=== PATIENT | female | born 1960 | race Caucasian/White ===

== ENCOUNTER 2016-12-14 11:35 | Emergency (ER) | payer SELFPAY ==
[~2016-12-14] VITALS: Wt 79.0 kg
[~2016-12-14 11:35] MED LIST: BUPR75TA9 PO; CLIN-73 PO; TRAM50TA2 PO
--- NOTE | 2016-12-14 13:19 | RADRPT ---
PROCEDURE: XR Right Foot CLINICAL INDICATION: Pain, trauma TECHNIQUE: AP, oblique, and lateral radiographs were submitted. COMPARISON: None FINDINGS: Osseous structures: appear well mineralized and intact with no fracture or destructive process iden tified. There is calcaneal spurring most extensive at the insertion of the plantar aponeurosis. Joint spaces: are well maintained, with no significant spurring, erosion or joint effusion evident. Soft tissues: There is linear calcification within the soft tissues lateral to the proximal interpha langeal joint of the right second toe. IMPRESSION: 1. The osseous elements appear intact. 2. Calcaneal spurring 3. Linear calcification seen lateral to the proximal interphalangeal joint of the right second toe. Physician [place] Date Time Electronically viewed and signed by Blanca Brown Physician on 12/14/2016 13:19 /
--- NOTE | 2016-12-14 13:27 | ERD ---
ER Documentation Chief Complaint Date/Time DATE: 12/14/16 TIME: 13:25 Chief Complaint R FOOT PAIN X 2 DAYS HPI This is a 36-year-old female who presents to the emergency room for evaluation of right-sided foot pain after she hit her foot on a metal bar approximately 2 days ago. The patient denies any other trauma to the body and states that her foot hurts and has been swollen. She does state that she has wrapped her foot and Gabriele wrap and came to the ER for evaluation. She denies any numbness or tingling in the foot ROS All systems reviewed and are negative except as per history of present illness. Medications Home Meds Active Scripts Tramadol HCl (Tramadol HCl) 50 Mg Tablet, 50 MG PO Q4 Y for PAIN, #20 TAB Prov:YUN MAKI 02/18/16 Clindamycin Hcl* (Clindamycin Hcl*) 300 Mg Capsule, 300 MG PO TID for 10 Days, CAP Prov:YUN MAKI 02/18/16 Reported Medications Bupropion Hcl* (Bupropion Hcl*) 75 Mg Tablet, 150 MG PO BID, #120 TAB 02/18/16 Allergies Allergies: Coded Allergies: No Known Allergy (Unverified , 02/18/16) PMhx/Soc History of Surgery: Yes (LASER TREATMENT OF LEG ULCER) Hx Miscellaneous Medical Probl: Yes (right leg ulcer) Hx Alcohol Use: No Hx Substance Use: No Hx Tobacco Use: No Physical Exam Vitals Vital Signs Date Time Temp Pulse Resp B/P Pulse Ox O2 Delivery O2 Flow Rate FiO2 12/14/16 11:38 98.0 71 18 171/81 100 Physical Exam Const: No acute distress Head: Atraumatic Eyes: Normal Conjunctiva ENT: Normal External Ears, Nose and Mouth. Neck: Full range of motion..~ No meningismus. Resp: Clear to auscultation bilaterally Cardio: Regular rate and rhythm, no murmurs Abd: Soft, non tender, non distended. Normal bowel sounds Skin: No petechiae or rashes Back: No midline or flank tenderness Ext: Soft tissue swelling noted on the dorsal aspect of the right foot, scarring on the right foot, Refill less than 2 seconds in the right foot. Palpable dorsalis pedis and posterior tibial pulse bilaterally which are equal Neur: Awake and alert Psych: Normal Mood and Affect Procedures/MDM X-ray Foot 3V Interpreted by me: Bones: No fracture Joints: No dislocation Foreign body: None A orthopedic shoe splint was applied by the tech under my direct supervision. After splint application, the patient was appreciated to have a normal distal neurovascular examination. This 56-year-old female presents to the emergency room for evaluation of right foot pain. When I evaluated her she did have soft tissue swelling of the right foot. She was neurovascularly intact in the foot. X-ray was obtained which does not show any fractures. I have discussed the patient's results with her. The patient will be discharged at this time with an orthopedic, instructions to keep her leg elevated. Instructions to keep her leg iced. She will also receive a prescription for Motrin and follow-up with primary care this week. Departure Diagnosis: Primary Impression: Contusion of right foot Condition: Stable VIRGINIA ORTIZ DO December 14, 2016 13:27
[2016-12-14] MEDS ORDERED: IBUP800T25 PO (13:28)
== END 2016-12-14 13:44 | disposition home or self-care (01) ==
LOC: FTE 11:35
DX: S90.31XA Contusion of right foot, initial encounter (principal); W22.8XXA Striking against or struck by other objects, initial encounter; Y92.9 Unspecified place or not applicable
CPT/HCPCS: 73630

== ENCOUNTER 2017-03-04 23:35 | Emergency (ER) | payer OTHER ==
[~2017-03-04] VITALS: Ht 160 cm; Wt 103.5 kg
[~2017-03-04 23:35] MED LIST changes: +IBUP800T25 PO
[2017-03-04 23:37] VITALS: Ht 160 cm; Wt 103.5 kg
--- NOTE | 2017-03-05 01:09 | ERA ---
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 The pain is worse with movement. She denies similar symptoms previously, denies fever, chills, neck pain, chest pain, vomiting, dysuria, diarrhea, hematuria. She does not smoke nor drink Past medical history: Hypertension however she is noncompliant with her medication, chronic low back pain, chronic right foot ulcer Past surgical history: Right knee arthroscopy ROS All systems reviewed and are negative except as per history of present illness. Medications Home Meds Active Scripts Ibuprofen* (Motrin*) 600 Mg Tab, 600 MG PO Q6, #30 TAB Prov:BENTLEY MONTOYA MD 03/05/17 Ibuprofen* (Motrin*) 800 Mg Tab, 800 MG PO Q6H Y for PAIN AND OR ELEVATED TEMP, #30 TAB Prov:VIRGINIA ORTIZ DO 12/14/16 Tramadol HCl (Tramadol HCl) 50 Mg Tablet, 50 MG PO Q4 Y for PAIN, #20 TAB Prov:YUN MAKI 02/18/16 Clindamycin Hcl* (Clindamycin Hcl*) 300 Mg Capsule, 300 MG PO TID for 10 Days, CAP Prov:YUN MAKI 02/18/16 Reported Medications Bupropion Hcl* (Bupropion Hcl*) 75 Mg Tablet, 150 MG PO BID, #120 TAB 02/18/16 Allergies Allergies: Coded Allergies: No Known Allergy (Unverified , 02/18/16) PMhx/Soc History of Surgery: Yes (LASER TREATMENT OF LEG ULCER) Hx Miscellaneous Medical Probl: Yes (right leg ulcer) Hx Alcohol Use: No Hx Substance Use: No Hx Tobacco Use: No Physical Exam Vitals Vital Signs Date Time Temp Pulse Resp B/P Pulse Ox O2 Delivery O2 Flow Rate FiO2 03/04/17 23:37 100.0 79 20 208/88 98 Physical Exam Const: No acute distress. Anxious Head: Atraumatic. Eyes: Normal Conjunctiva. ENT: Normal External Ears, Nose and Mouth. Neck: Full range of motion. No meningismus. Resp: Clear to auscultation bilaterally. Cardio: Regular rate and rhythm. Abd: Soft, non distended, normal bowel sounds, mild left flank and left lumbar tenderness, no rigidity, rebound, CVA tenderness Skin: No petechiae or rashes. Back: No midline or flank tenderness. Ext: No cyanosis, or edema. Chronic right foot ulcer, no calf tenderness Neur: Awake and alert. No focal deficit Psych: Normal Mood and Affect. Result Diagram: 03/05/17 0145 03/05/17 0145 Results 24 hrs Laboratory Tests Test 03/05/17 01:45 White Blood Count 7.510^3/ul Red Blood Count 4.6010^6/ul Hemoglobin 12.8g/dl Hematocrit 40.9% Mean Corpuscular Volume 88.9fl Mean Corpuscular Hemoglobin 27.8pg Mean Corpuscular Hemoglobin Concent 31.3g/dl Red Cell Distribution Width 13.1% Platelet Count 58153^3/UL Mean Platelet Volume 10.0fl Neutrophils % 68.3% Lymphocytes % 21.4% Monocytes % 5.7% Eosinophils % 3.5% Basophils % 0.4% Nucleated Red Blood Cells % 0.0/100WBC Neutrophils # 5.110^3/ul Lymphocytes # 1.610^3/ul Monocytes # 0.410^3/ul Eosinophils # 0.310^3/ul Basophils # 0.010^3/ul Nucleated Red Blood Cells # 0.010^3/ul Sodium Level 147mmol/L Potassium Level 4.0mmol/L Chloride Level 103mmol/L Carbon Dioxide Level 27mmol/L Anion Gap 21 Blood Urea Nitrogen 10mg/dl Creatinine 0.82mg/dl Glucose Level 98mg/dl Calcium Level 9.9mg/dl Total Bilirubin 0.5mg/dl Direct Bilirubin 0.00mg/dl Indirect Bilirubin 0.5mg/dl Aspartate Amino Transf (AST/SGOT) 21IU/L Alanine Aminotransferase (ALT/SGPT) 28IU/L Alkaline Phosphatase 106IU/L Total Protein 8.8g/dl Albumin 4.7g/dl Globulin 4.10g/dl Albumin/Globulin Ratio 1.14 Lipase 93U/L Current Medications Medications (Trade) Dose Ordered Sig/Jaylen Route PRN Reason Start Time Stop Time Status Last Admin Dose Admin Morphine Sulfate (morphine) 4 mg ONCE STAT IV 03/05/17 01:38 03/05/17 01:39 DC 03/05/17 02:20 Ondansetron HCl (Zofran Inj) 4 mg ONCE STAT IV 03/05/17 01:38 03/05/17 01:39 DC 03/05/17 02:20 Procedures/MDM [facility] [id number] [id number] Radiology Main Line: [phone] DIAGNOSTIC IMAGING REPORT Patient: ALEXI BARNES : 1960 Age: 56 Sex: F MR #: [id number] DOS: 03/05/17 0115 Ordering MD: BENTLEY MONTOYA MD Location: E/R Room/Bed: PROCEDURE: CT abdomen and pelvis without intravenous contrast. CLINICAL INDICATION: Pain. TECHNIQUE: CT of the abdomen/pelvis was performed utilizing axial images with reconstructions in sagittal and coronal planes. The administered radiation dose is CTDI 24 mGy, DLP 1181 mGy-cm. COMPARISON: No pertinent prior examinations were submitted for comparison. FINDINGS: Visualized Chest: There is mild cardiomegaly. Abdomen: The spleen, pancreas, gallbladder,and adrenal glands are unremarkable. The liver is diffusely decreased in attenuation, compatible with hepatic steatosis. The kidneys are without hydronephrosis. No definite urinary calculi are seen. There is no evidence of bowel obstruction. The appendix is normal. No intra- abdominal free air is seen. There is a nqcshwcc-hu-mgecg omentum containing periumbilical hernia. There is no evidence of intra-abdominal adenopathy or free fluid. Pelvis: Mildly enlarged lymph nodes are seen in the right groin and iliac chain regions. The uterus and ovaries are without enlargement. The urinary bladder is unremarkable. There is no pelvic free fluid. Osseous structures: Unremarkable. IMPRESSION: No acute findings. Hepatic steatosis. Mild right pelvic adenopathy which is nonspecific. Moderate to large omentum containing periumbilical hernia. RPTAT: HIKT .Cabrera Blank MD, MD Date Time Electronically viewed and signed by .Cabrera Blank MD, MD on 03/05/2017 01:58 .T/ CC: BENTLEY MONTOYA MD Urine dipstick is negative per nursing staff MEDICAL MAKING DECISION: The patient is a 56-year-old female, presenting with acute abdominal pain, acute on chronic low back pain most likely musculoskeletal pain. She was treated with morphine 4 IV for pain, Zofran 4 IV for nausea with good response. Blood pressure improved The differential diagnoses considered include but are not limited to cholelithiasis, cholecystitis, cystitis, pancreatitis, hepatitis, gastritis, peptic ulcer disease, gastric ulcer, appendicitis, diverticulitis, cholangitis, choledocholithiasis, partial small bowel obstruction. Departure Diagnosis: Primary Impression: Abdominal pain Additional Impression: Back pain Condition: Good Comments She was discharged with Motrin I discussed the findings with the patient. I advised the patient to follow-up with the primary physician in about 1-2 days, sooner if needed and return if any concern. BENTLEY MONTOYA MD Mar 05, 2017 01:09
[2017-03-05] MEDS ORDERED: morphine 4 MG/ML VIAL IV STA (01:38)
[2017-03-05] MEDS ORDERED: ONDANSETRON 4 MG INJ IV STA (01:38)
[2017-03-05 01:53] LABS: BASOPHILS % 0.4 % (0.0-2.0); EOSINOPHILS # 0.3 10^3/ul (0.0-0.5); EOSINOPHILS % 3.5 % (0.0-7.0); HEMATOCRIT 40.9 % (37.0-47.0); HEMOGLOBIN 12.8 g/dl (12.0-16.0); LYMPHOCYTES # 1.6 10^3/ul (0.8-2.9); LYMPHOCYTES % 21.4 % (15.0-51.0); MEAN CORPUSCULAR HEMOGLOBIN 27.8 pg (29.0-33.0); MEAN CORPUSCULAR HGB CONC 31.3 g/dl (32.0-37.0); MEAN CORPUSCULAR VOLUME 88.9 fl (82.0-101.0); MONOCYTE # 0.4 10^3/ul (0.3-0.9); MONOCYTES % 5.7 % (0.0-11.0); NEUTROPHIL # 5.1 10^3/ul (1.6-7.5); NEUTROPHILS % 68.3 % (39.0-77.0); PLATELET COUNT 294 10^3/UL (140-415); RED CELL DISTRIBUTION WIDTH 13.1 % (11.5-14.5); WHITE BLOOD COUNT 7.5 10^3/ul (4.8-10.8)
--- NOTE | 2017-03-05 01:58 | RADRPT ---
PROCEDURE: CT abdomen and pelvis without intravenous contrast. CLINICAL INDICATION: Pain. TECHNIQUE: CT of the abdomen/pelvis was performed utilizing axial images with reconstructions in s agittal and coronal planes. The administered radiation dose is CTDI 24 mGy, DLP 1181 mGy-cm. COMPARISON: No pertinent prior examinations were submitted for comparison. FINDINGS: Visualized Chest: There is mild cardiomegaly. Abdomen: The spleen, pancreas, gallbladder,and adrenal glands are unremarkable. The liver is diffusely dec reased in attenuation, compatible with hepatic steatosis. The kidneys are without hydronephrosis. No definite urinary calculi are seen. There is no evidence of bowel obstruction. The appendix is normal. No intra-abdominal free air is seen. There is a efnbwvpw-vy-acmro omentum containing periumbilical hernia. There is no evidence of intra-abdominal adenopathy or free fluid. Pelvis: Mildly enlarged lymph nodes are seen in the right groin and iliac chain regions. The uterus and ovar ies are without enlargement. The urinary bladder is unremarkable. There is no pelvic free fluid. Osseous structures: Unremarkable. IMPRESSION: No acute findings. Hepatic steatosis. Mild right pelvic adenopathy which is nonspecific. Moderate to large omentum containing periumbilical hernia. RPTAT: HIKT .Cabrera Blank MD, MD Date Time Electronically viewed and signed by .Cabrera Blank MD, MD on 03/05/2017 01:58 .T/
[2017-03-05 02:44] LABS: ALBUMIN 4.7 g/dl (3.3-4.9); ALBUMIN/GLOBULIN RATIO 1.14; BILIRUBIN,INDIRECT 0.5 mg/dl (0-1.1); BILIRUBIN,TOTAL 0.5 mg/dl (0.2-1.3); CALCIUM 9.9 mg/dl (8.4-10.2); CREATININE 0.82 mg/dl (0.44-1.00); TOTAL PROTEIN 8.8 g/dl (6.1-8.1)
[2017-03-05] MEDS ORDERED: IBUP-1542 PO (03:18)
[2017-03-05 03:44] VITALS: BP 132/61; PULSE 87; RESP 17; TEMP 98.3
== END 2017-03-05 03:46 | disposition home or self-care (01) ==
LOC: E/R 23:35
DX: R10.9 Unspecified abdominal pain (principal); M54.5 Low back pain; I10 Essential (primary) hypertension
CPT/HCPCS: 36415; 74176; 80053; 83690; 85025; 96374; 96375; J2270; J2405; Z7502

== ENCOUNTER 2018-04-22 01:24 | Emergency (ER) | END 2018-04-22 06:15 | disposition home or self-care (01) ==

== ENCOUNTER 2018-10-06 21:49 | Emergency (ER) | payer OTHER ==
[~2018-10-06] VITALS: Wt 106.4 kg
[~2018-10-06 21:49] MED LIST changes: -BUPR75TA9 PO; -CLIN-73 PO; +ERGO500013 PO; +IBUP-1982 PO; -IBUP800T25 PO; -TRAM50TA2 PO
[2018-10-06 21:54] VITALS: Wt 106.4 kg
[2018-10-06] MEDS ORDERED: ONDANSETRON 4 MG INJ IV STA (22:47)
[2018-10-06] MEDS ORDERED: KETOROLAC 30 MG INJ IV STA (22:47)
[2018-10-06] MEDS ORDERED: SOD CHLORIDE 0.9% 1,000 ML IV STA (22:47)
--- NOTE | 2018-10-07 00:11 | ERD ---
ER Documentation Chief Complaint Chief Complaint FEVER COUGH S/P GETTING THE FLU SHOT HPI This is a 57-year-old female who was fine this morning and so she get the flu shot. She said for the flu shot about 4 5 hours later she began getting body aches and malaise and developed a fever and cough. Currently she complains of body pain arthralgias malaise and cough. She says she also had nausea vomiting x2 nonbloody nonbilious ROS All systems reviewed and are negative except as per history of present illness. Medications Home Meds Reported Medications Ibuprofen* (Ibuprofen*) 200 Mg Capsule, 200 MG PO QID PRN for PAIN, CAP 04/22/18 Discontinued Reported Medications Ergocalciferol (Vitamin D2) (VITAMIN D2) 50,000 Unit Capsule, 58790 UNIT PO, CAP 04/22/18 Allergies Allergies: Coded Allergies: No Known Allergy (Unverified , 10/07/18) PMhx/Soc History of Surgery: Yes (c section ) Anesthesia Reaction: No Hx Neurological Disorder: No Hx Respiratory Disorders: No Hx Cardiac Disorders: Yes (HTN) Hx Psychiatric Problems: No Hx Miscellaneous Medical Probl: Yes (right leg ulcer) Hx Alcohol Use: No Hx Substance Use: No Hx Tobacco Use: No Smoking Status: Never smoker FmHx Family History: No coronary disease Physical Exam Vitals Vital Signs Date Temp Pulse Resp B/P (MAP) Pulse Ox O2 O2 Flow FiO2 Time Delivery Rate 10/07/18 99.7 91 20 123/62 95 Room Air 00:27 (82) 10/06/18 102.7 108 20 156/79 94 21:54 (104) Physical Exam Const: Well-developed, well-nourished Head: Atraumatic, normocephalic Eyes: Normal Conjunctiva, PERRLA, EOMI, normal sclera, no nystagmus ENT: Normal External Ears, Nose and Mouth, moist mucus membranes. Neck: Full range of motion. No meningismus, no lymphadenopathy. Resp: Clear to auscultation bilaterally, no wheezing, rhonchi, rales Cardio: Tachycardia, no murmurs, S1 S2 present Abd: Soft, non tender x 4, non distended. Normal bowel sounds, no guarding or rebound, no pulsitile abdominal masses or bruits Skin: No petechiae or rashes, no ecchymosis , no maculopapular rash Back: No midline or flank tenderness Ext: No cyanosis, or edema, FROM x 4, normal inspection, neurovascularly intact x 4 Neur: Awake and alert, STR 5/5 x 4, sensation intact x 4, no focal findings, cerebellum intact Psych: Normal Mood and Affect Result Diagram: 10/06/18221110/06/182211 Results 24 hrs Laboratory Tests Test 10/06/18 22:12 10/06/18 22:19 White Blood Count 12.9 10^3/ul Red Blood Count 4.42 10^6/ul Hemoglobin 12.5 g/dl Hematocrit 39.3 % Mean Corpuscular Volume 88.9 fl Mean Corpuscular Hemoglobin 28.3 pg Mean Corpuscular Hemoglobin Concent 31.8 g/dl Red Cell Distribution Width 13.2 % Platelet Count 247 10^3/UL Mean Platelet Volume 10.6 fl Immature Granulocytes % 1.000 % Neutrophils % 91.9 % Lymphocytes % 3.6 % Monocytes % 3.3 % Eosinophils % 0.0 % Basophils % 0.2 % Nucleated Red Blood Cells % 0.0 /100WBC Immature Granulocytes # 0.130 10^3/ul Neutrophils # 11.9 10^3/ul Lymphocytes # 0.5 10^3/ul Monocytes # 0.4 10^3/ul Eosinophils # 0.0 10^3/ul Basophils # 0.0 10^3/ul Nucleated Red Blood Cells # 0.0 10^3/ul Sodium Level 139 mmol/L Potassium Level 3.8 mmol/L Chloride Level 103 mmol/L Carbon Dioxide Level 26 mmol/L Anion Gap 10 Blood Urea Nitrogen 14 mg/dl Creatinine 0.74 mg/dl Est Glomerular Filtrat Rate mL/min > 60 mL/min Glucose Level 114 mg/dl Calcium Level 9.4 mg/dl Total Bilirubin 1.0 mg/dl Direct Bilirubin 0.00 mg/dl Indirect Bilirubin 1.0 mg/dl Aspartate Amino Transf (AST/SGOT) 25 IU/L Alanine Aminotransferase (ALT/SGPT) 23 IU/L Alkaline Phosphatase 93 IU/L Total Protein 7.9 g/dl Albumin 4.3 g/dl Globulin 3.60 g/dl Albumin/Globulin Ratio 1.19 POC Venous Lactate 1.5 mmol/L Current Medications Medications Dose Sig/Jaylen Start Time Status Last (Trade) Ordered Route PRN Stop Time Admin Dose Reason Admin Sodium 1,000 ml @ Q1H STAT 10/06/18 DC 10/07/18 Chloride 1,000 mls/hr IV 22:47 00:20 10/06/18 23:46 Ondansetron 4 mg ONCE STAT 10/06/18 DC 10/07/18 HCl (Zofran IV 22:47 00:19 Inj) 10/06/18 22:48 Ketorolac 30 mg ONCE STAT 10/06/18 DC 10/07/18 Tromethamine IV 22:47 00:19 (Toradol) 10/06/18 22:48 Procedures/MDM Patient: ALEXI BARNES : 1960 Age: 57 Sex: F MR #: [id number] DOS: 10/07/18 0009 Ordering MD: RAHUL KINNEY DO Location: E/R Room/Bed: PROCEDURE: XR Chest. TECHNIQUE: Single frontal radiograph. CLINICAL INDICATION: Chest Pain. COMPARISON: CT 04/22/2018; CR CHEST 02/18/2016 FINDINGS: Mild low lung volumes. No evidence of focal consolidation, pneumothorax, or pleural effusion. Cardiomediastinal silhouette is within normal limits. Visualized osseous thorax is unremarkable. Overlying soft tissues are equally unremarkable. IMPRESSION: No evidence of acute cardiopulmonary process. RPTAT: EE Physician Gracia Cuevas Date Time Electronically viewed and signed by Physician Mason [employer] Director on 10/07/2018 01:47 rP/ CC: RAHUL KINNEY DO [id number] Patient's fever is down. She has no evidence of pneumonia. She is likely having a reaction to the influenza vaccine and may have even acquired it. Her white blood count is 12.9 no bandemia no sepsis. She is currently afebrile feels better. Will discharge home with prescription for Motrin and Tamiflu Departure Diagnosis: Primary Impression: Influenza Condition: Stable RAHUL KINNEY DO Oct 07, 2018 00:11
[2018-10-07] MEDS ORDERED: OSEL75CA23 PO (03:00)
[2018-10-07] MEDS ORDERED: ONDA4TAB14 PO (03:00)
[2018-10-07] MEDS ORDERED: IBUP800T48 PO (03:00)
[2018-10-07 03:20] VITALS: BP 111/71; PULSE 84; RESP 20
== END 2018-10-07 03:51 | disposition home or self-care (01) ==
LOC: E/R 21:49
DX: J11.1 Influenza due to unidentified influenza virus with other respiratory manifestations (principal); I10 Essential (primary) hypertension
CPT/HCPCS: 71045; 80053; 83605; 85025; 87400; 96374; 96375; J1885; J2405; J7030; Z7502